=== PATIENT | female | born 1995 | race Caucasian/White ===

== ENCOUNTER 2021-03-30 12:33 | Emergency (ER) | payer OTHER, SELFPAY ==
--- NOTE | 2021-03-30 12:39 | ED.GENADULT ---
HPI - General Adult General Chief complaint: Unspecified Stated complaint: Rash,Kidney Pain Source: patient Mode of arrival: ambulatory Limitations: no limitations History of Present Illness HPI narrative: Patient presents for evaluation of right-sided flank pain with radiation to the abdomen. She indicates she initially experienced some suprapubic cramping that she thought was related to menstruation. Cramping started approximately 1 week ago, however she had no vaginal bleeding. Three days ago she developed right-sided flank pain and went to an urgent care associated with [facility]. From the history she provides, it sounds like there was no evidence of urinary tract infection on lab specimen collected there but she was diagnosed with pyelonephritis and was discharged with oral cipro. She denies any fever, vaginal discharge or vomiting. She has experienced chills and nausea. She has had kidney stones in the past and this feels similar. She has also had ovarian cysts. Surgical history positive for oophorectomy on the left, 2/2 ovarian torsion. She rates her pain 4-7/10 in severity and described as cramping and sharp. She has taken one dose of her cipro thus far. She states current pain is not as severe as pain experienced in past with ovarian torsion. She does also state that she has a hx of ovarian cysts. She states she has experienced some pruritis to her face since starting cipro. Denies rash and pruritis otherwise. Related Data Allergies Allergy/AdvReac Type Severity Reaction Status Date / Time No Known Allergies Allergy Unverified 09/05/17 16:33 Review of Systems Review of Systems: Narrative: CONSTITUTIONAL:Reports nausea. Denies fever. EYES: Denies visual changes, redness, or discharge. ENT: Denies rhinorrhea, congestion, sore throat, or otalgia. CARDIOVASCULAR: Denies chest pain, palpitations, or edema. RESPIRATORY: Denies cough or dyspnea. GASTROINTESTINAL: Reports nausea, right flank pain with radiation into right lower abdomen. GENITOURINARY: Reports dysuria SKIN: Reports pruritic rash to face MUSCULOSKELETAL: Denies back pain, joint pain, or myalgia. NEUROLOGIC: Denies headache, numbness, dizziness, or weakness. PSYCHIATRIC: Denies anxiety or depression. [facility] Past Medical History Medical History Endometriosis History of kidney stones Migraines Ovarian cyst, right Surgical History Surgical History History of left oophorectomy Family History Family History Mother No pertinent past medical history Social History Social History Substance use: never Gender identity (if verbalized by the patient): Female Sexual Orientation (if Verbalized by the Patient): Straight or Heterosexual Spiritual care concerns: No Exam Narrative: Exam Narrative: GENERAL: Well-appearing, well-nourished, and in no acute distress. HEAD: Normocephalic, atraumatic. EYES: PERRLA and EOMI. ENT: Nares clear, no rhinorrhea or epistaxis. Mucous membranes moist. Oropharynx without tonsillar hypertrophy exudate or other lesions. Bilateral TMs pearly hutchinson nonbulging NECK: Supple. No adenopathy or masses. No carotid bruits or JVD CHEST: Clear to auscultation. No respiratory distress. No wheezes rales or rhonchi HEART: Regular rate and rhythm. No murmur heard. Normal peripheral pulses. ABDOMEN: Soft, tender in the right upper and lower quadrants without rebound or guarding. Abdomen is nondistended, normal active bowel sounds. No CVA tenderness. EXTREMITIES: Normal range of motion. No edema. SKIN: Warm, dry, no rash. NEURO: No focal deficits. Alert and oriented x3. PSYCH: Normal mood and affect. Course Course Emergency Course: This is a 25-year-old female who presented with compla
[2021-03-30 12:44] VITALS: BP 114/67; PULSE 96; RESP 16; TEMP 36.8; O2SAT 100
== END 2021-03-30 13:36 | disposition home or self-care (01) ==
PROVIDERS: Emergency Provider Nurse Practitioner; PCP Family Medicine
DX: R10.31 Right lower quadrant pain (principal); R10.32 Left lower quadrant pain; L29.9 Pruritus, unspecified; Z87.42 Personal history of other diseases of the female genital tract; Z87.440 Personal history of urinary (tract) infections; N80.9 Endometriosis, unspecified
CPT/HCPCS: 81003; 99213; G0463

== ENCOUNTER 2025-03-09 10:51 | Emergency (ER) | payer OTHER, SELFPAY ==
--- NOTE | ~2025-03-09 | XR_ITS ---
EXAMINATION: XR chest 1V DATE: 03/09/2025 12:39 INDICATION: Seizure like activity TECHNIQUE: frontal view of the chest was obtained. COMPARISON: None FINDINGS: The lungs are clear with no focal airspace opacities, pulmonary edema, pleural effusion or pneumothor ax. The cardiomediastinal silhouette is normal. Visualized bones and soft tissues are unremarkable. IMPRESSION: 1. Normal chest radiograph. Reviewed, dictated and finalized at location B. IMPRESSION: 1. Normal chest radiograph.
--- NOTE | ~2025-03-09 | CT_ITS ---
EXAMINATION: CT brain wo con DATE: 03/09/2025 12:36 INDICATION: Seizure like activity. Head injury. TECHNIQUE: Computed tomography (CT) of the head was performed without intravenous contrast. Sagittal and coronal reconstructions were performed. The mA was adjusted according to patient size. Iterative reconstruction technique was employed. The dose-length product was 681.00 mGy-cm. COMPARISON: None FINDINGS: No fracture. No acute intracranial hemorrhage, acute infarction or abnormal extra axial fluid collect ion. Ventricles are normal and symmetric. No mass/mass effect. The orbits, paranasal sinuses and mast oid air cells are normal. IMPRESSION: 1. Normal head CT. No fracture acute intracranial process. Reviewed, dictated and finalized at location B.
[2025-03-09 10:53] VITALS: BP 124/85; PULSE 74; RESP 12; O2SAT 98
[2025-03-09 11:06] VITALS: BP 120/82; PULSE 83; RESP 12; TEMP 36.6; O2SAT 98
[2025-03-09 11:22] VITALS: PULSE 80
--- NOTE | 2025-03-09 12:11 | ED_ITS ---
HPI - Seizure General Chief Complaint: Seizure Stated Complaint: seizure Time Seen by Provider: 03/09/25 12:08 Source: patient Mode of arrival: ambulatory Limitations: no limitations History of Present Illness HPI Narrative: 29 years old white female came to the ED by ambulance with possible seizure-like activities. Patient had a court appointment today, was so stressful, after finishing, lost consciousness and fell down to the floor hitting her head, seizure-like activity lasted less than 30 seconds, patient report was slightly confused. Patient denies other injuries. Patient report having history of seizure for years and stop taking Keppra at age 17 and was told by her neurologist that her seizure is related to stress that is why she does not need to be on Keppra anymore. Patient denies any fever, chills, nausea, vomiting, biting her tongue or urine incontinence. Related Data Allergies Allergy/AdvReac Type Severity Reaction Status Date / Time codeine Allergy Rash Verified 03/09/25 11:07 metoclopramide (From Reglan) Allergy Anxiety Verified 03/09/25 11:07 NSAIDS (Non-Steroidal Allergy Gastrointestinal Verified 03/09/25 11:07 Anti-Inflamma Upset sumatriptan Allergy Swelling Verified 03/09/25 11:07 of Lip/Tongue/Throat Review of Systems 2 Review of Systems: All systems reviewed & are unremarkable except as noted in HPI and below PMFSH Past Medical History Medical History History of kidney stones Ovarian cyst, right Endometriosis Migraines Surgical History Surgical History History of left oophorectomy Family History Family History Mother No pertinent past medical history Social History Social History Substance use: never Gender identity (if verbalized by the patient): Female Sexual Orientation (if Verbalized by the Patient): Straight or Heterosexual Spiritual care concerns: No Exam 2 Narrative: General appearance: Well-developed, well-nourished Skin: Normal color Head: Normocephalic, nontraumatic Eyes: Clear conjunctiva ENT: Oropharynx normal, ears normal, nose normal Neck: Supple, nontender Chest and respiratory: Airway patent, no respiratory distress, no accessory muscle use Heart: Regular rate/rhythm Abdomen: Soft, nontender, no organomegaly, quiet bowel sounds Vascular: Normal peripheral pulses, normal capillary refill. Musculoskeletal: Normal range of motion, nontender back Neurologic: Alert and oriented ?3, [employer] is normal as tested, no gross motor deficit Course Vital Signs Vital signs: Vital Signs Pulse Rate 74 03/09/25 10:53 Respiratory Rate 12 03/09/25 10:53 Blood Pressure 124/85 03/09/25 10:53 Pulse Oximetry 98 03/09/25 10:53 Oxygen Delivery Room Air 03/09/25 10:53 Temperature 36.6 C 03/09/25 11:06 Pulse Rate 82 03/09/25 12:53 Respiratory Rate 18 03/09/25 12:53 Blood Pressure 125/84 03/09/25 12:53 Pulse Oximetry 98 03/09/25 12:53 Oxygen Delivery Room Air 03/09/25 11:30 MDM - Seizure MDM Narrative Medical decision making narrative: Patient came to the ED with seizure-like activities Vital signs are stable Physical examination is unremarkable Differential diagnosis include seizure-like activity secondary to stress. Blood workup today includes CBC, CMP, coags showed no acute abnormalities Urinalysis showed no evidence of infection Urine drug screen negative Chest x-ray showed no acute abnormalities CT head without contrast showed no acute abnormal PATIENT ELOPED BEFORE BLOOD WORKUP AND IMAGING BACK. DIAGNOSIS SEIZURE, STRESS, ELOPEMENT Differential Diagnosis Differential diagnosis: Likely other (Stress inducing seizure-like activities) Medical Records Attestation: I reviewed the patient's medical records. Lab Data Attestation: I reviewed the patient's lab results. 03/09/25 13:08 03/09/25 13:08 Labs: Lab Results 03/09/25 03/09/25 03/09/25 Range/Units 11:22 12:28 12:30 WBC (4.5-10.0) K/mm3 RBC (4.2-5.4) M/mm3 Hgb (12.0-15.0) g/dL Hct (37.0-47.0) % MCV (80-100) fl MCH (26-34) pg MCHC (32-36) g/dl RDW (11.5-14.5) % Plt Count (150-375) k/mm3 MPV (7.4-10.4) fl Immature Gran % (Auto) (0-0.5) % Neut % (Auto) (45.5-73.1) % Lymph % (Auto) (18.3-44.2) % [place] % (Auto) (2.6-8.5) % Eos % (Auto) (0-4.4) % Baso % (Auto) (0.2-1.2) % Lymph # (Auto) (0.9-3.2) K/mm3 [place] # (Auto) (0.1-0.6) K/mm3 Eos # (Auto) (0-0.3) K/mm3 Baso # (Auto) (0.0-0.1) K/mm3 Abs Immat Gran (auto) (0.00-0.031) K/mm3 Absolute Neuts (auto) (1.3-6.7) K/mm3 Absolute Nucleated RBC (0.0-0.012) K/mm3 Nucleated RBC % (0.0-0.2) % PT (11.1-14.7) Seconds INR APTT (22.3-36.8) Seconds Sodium (137-145) mmol/L Potassium (3.4-5.0) mmol/L Chloride (98-107) mmol/L Carbon Dioxide (22-30) mmol/L Anion Gap (4-12) mmol/L BUN (7-17) mg/dL Creatinine (0.7-1.0) mg/dL Estim Creat Clear Calc ml/min Estimated GFR (59 - ) Glucose (65-110) mg/dL Calcium (8.4-10.2) mg/dL Total Bilirubin (0.2-1.3) mg/dL AST (14-36) U/L ALT (6-35) U/L Alkaline Phosphatase (38-126) U/L Total Creatine Kinase (30-135) U/L Total Protein (6.3-8.2) g/dL Albumin (3.5-5.1) g/dL Urine Color Yellow (Yellow) Urine Appearance Cloudy H (Clear) Urine pH 7.5 (5.0-9.0) Ur Specific [place] 1.006 (1.001-1.035) Urine Protein Trace (Negative) mg/dL Urine Glucose (UA) Negative (Negative) mg/dL Urine Ketones Negative (Negative) mg/dL Ur Blood (Man) 3+ H (Negative) Urine Nitrate Negative (Negative) Urine Bilirubin Negative (Negative) Urine Urobilinogen 0.2 (<2.0) mg/dL Leukocyte Esterase Rfl Trace H (Negative) MELISSA/UL Urine RBC 3-5 H (0-2) /hpf Urine WBC 6-10 H (0-3) /hpf Ur Squamous Epith Cells Few (Few) /hpf Urine Bacteria 1+ H /hpf Urine Casts 0-2 POC Urine HCG, Qual Negative Negative (Negative) Urine Opiates Screen Negative (Negative) Urine Methadone Screen Negative (Negative) Ur Barbiturates Screen Negative (Negative) Ur Phencyclidine Scrn Negative (Negative) Ur Amphetamine Screen Negative (Negative) U Benzodiazepines Scrn Negative (Negative) Urine Cocaine Screen Negative (Negative) U Cannabinoids Screen Negative (Negative) Ethyl Alcohol (<10) mg/dL 03/09/25 Range/Units 13:08 WBC 7.4 (4.5-10.0) K/mm3 RBC 4.41 (4.2-5.4) M/mm3 Hgb 12.3 (12.0-15.0) g/dL Hct 38.4 (37.0-47.0) % MCV 87.1 (80-100) fl MCH 27.9 (26-34) pg MCHC 32.0 (32-36) g/dl RDW 14.1 (11.5-14.5) % Plt Count 307 (150-375) k/mm3 MPV 10.0 (7.4-10.4) fl Immature Gran % (Auto) 0.3 (0-0.5) % Neut % (Auto) 64.2 (45.5-73.1) % Lymph % (Auto) 26.8 (18.3-44.2) % [place] % (Auto) 7.9 (2.6-8.5) % Eos % (Auto) 0.3 (0-4.4) % Baso % (Auto) 0.5 (0.2-1.2) % Lymph # (Auto) 1.99 (0.9-3.2) K/mm3 [place] # (Auto) 0.6 (0.1-0.6) K/mm3 Eos # (Auto) 0.0 (0-0.3) K/mm3 Baso # (Auto) 0.0 (0.0-0.1) K/mm3 Abs Immat Gran (auto) 0.02 (0.00-0.031) K/mm3 Absolute Neuts (auto) 4.8 (1.3-6.7) K/mm3 Absolute Nucleated RBC 0.000 (0.0-0.012) K/mm3 Nucleated RBC % 0.0 (0.0-0.2) % PT 14.3 (11.1-14.7) Seconds INR 1.1 APTT 28.8 (22.3-36.8) Seconds Sodium 141 (137-145) mmol/L Potassium 3.6 (3.4-5.0) mmol/L Chloride 107 (98-107) mmol/L Carbon Dioxide 25 (22-30) mmol/L Anion Gap 9 (4-12) mmol/L BUN 7 (7-17) mg/dL Creatinine 0.68 L (0.7-1.0) mg/dL Estim Creat Clear Calc 116 ml/min Estimated GFR > 60 (59 - ) Glucose 94 (65-110) mg/dL Calcium 9.4 (8.4-10.2) mg/dL Total Bilirubin 0.9 (0.2-1.3) mg/dL AST 19 (14-36) U/L ALT 10 (6-35) U/L Alkaline Phosphatase 54 (38-126) U/L Total Creatine Kinase 51 (30-135) U/L Total Protein 7.3 (6.3-8.2) g/dL Albumin 4.2 (3.5-5.1) g/dL Urine Color (Yellow) Urine Appearance (Clear) Urine pH (5.0-9.0) Ur Specific [place] (1.001-1.035) Urine Protein (Negative) mg/dL Urine Glucose (UA) (Negative) mg/dL Urine Ketones (Negative) mg/dL Ur Blood (Man) (Negative) Urine Nitrate (Negative) Urine Bilirubin (Negative) Urine Urobilinogen (<2.0) mg/dL Leukocyte Esterase Rfl (Negative) MELISSA/UL Urine RBC (0-2) /hpf Urine WBC (0-3) /hpf Ur Squamous Epith Cells (Few) /hpf Urine Bacteria /hpf Urine Casts POC Urine HCG, Qual (Negative) Urine Opiates Screen (Negative) Urine Methadone Screen (Negative) Ur Barbiturates Screen (Negative) Ur Phencyclidine Scrn (Negative) Ur Amphetamine Screen (Negative) U Benzodiazepines Scrn (Negative) Urine Cocaine Screen (Negative) U Cannabinoids Screen (Negative) Ethyl Alcohol < 10 (<10) mg/dL Imaging Data Radiologist's impression: Impressions Head CT 03/09/25 13:20 IMPRESSION: 1. Normal head CT. No fracture acute intracranial process. Chest X-Ray 03/09/25 13:38 IMPRESSION: 1. Normal chest radiograph. ECG Data EKG #1: Attestation: I personally reviewed and interpreted this ECG as follows: ECG completion date: 03/09/25 Interpretation: NORMAL SINUS RHYTHM AT 65 BEATS PER MINUTE, NORMAL EKG Critical Care Time Critical Care Time Critical Care Time: No Discharge Plan Discharge Clinical Impression: Observed seizure-like activity, Stress Patient Disposition: Elopement After Seen by Prov Patient Language: Filipino Prescriptions: No Action hydroxyzine pamoate [Vistaril] 25 mg capsule 25 mg PO TID PRN (Reason: itching) Qty: 20 0RF Follow-up/Referrals: Juliane,Felipe Zhang MD [Primary Care Provider] - Danita Hernandez MD [Physician] - 03/13/25
--- NOTE | 2025-03-09 12:12 | ECG_ITS ---
Test Date: 2025-03-09 13:13:12 Measurements Intervals Bailey Rate: 65 P: 50 CT: 154 QRS: 57 QRSD: 85 T: 52 QT: 385 QTc: 403 Interpretive Statements SINUS RHYTHM No previous ECG available for comparison Electronically Signed On 03-09-2025 16:52:16 CDT by Guillermo Park
[2025-03-09 12:17] LABS: BEDSIDEPREGUCG Negative (Negative)
[2025-03-09 12:31] LABS: BEDSIDEPREGUCG Negative (Negative)
--- OUTSIDE RECORDS SUMMARY | 2025-03-09 12:42 | XMS_ITS | Continuity of Care Document ---
Author Organization [facility] Address [address] [place] [address] Phone Care Team Providers Care Snowboarder Name Role Phone Leo Rayo DO Unavailable Unavailable Allergies, Adverse Reactions, Alerts Substance Reaction Status Criticality Bleach (Sodium Hypochlorite) Active No Information barley Active No Information codeine Active No Information Medications Medication Instructions Dosage Effective Dates (start - stop) Status Comments oxycodone-acetamino phen 5 mg-325 mg tablet take 1 tablet by oral route every 8 hours as needed 1 tablet - Active Must last 10 days Cipro 500 mg tablet take 1 tablet by oral route every 12 hours 500 MG - Active prednisone 10 mg tablet take 1 tablet by oral route every day as needed 10 MG - Active TAMSULOSIN HCL 0.4 MG CAPSULE TAKE 1 CAPSULE BY MOUTH EVERY DAY 1/2 HOUR FOLLOWING THE SAME MEAL EACH DAY - Active omeprazole 20 mg tablet,delayed release take 20 milligram by oral route every day 20 milligram - Active Lupron Depot 3.75 mg intramuscular syringe kit inject (3.75MG) by intramuscular route every month 3.75 MG - Active Procedures Procedure Date Ketorolac tromethamine inj OFFICE/OUTPATIENT VISIT, EST OFFICE/OUTPATIENT VISIT, EST URINALYSIS NONAUTO W/O SCOPE OFFICE/OUTPATIENT VISIT, EST OFFICE/OUTPATIENT VISIT, NEW Advance Directives Directive Yes / No Effective Date File Name No Information Encounters Encounter Description Practice Location Reason(s) For Visit Diagnoses Date Provider Providers Copied on Encounter [facility], [address] [place], [address], [place] tel:[phone] *Count Includes [facility] No Information 4 Perri Bailey. [address] [place], [address], [place]. tel:[phone] [facility], [address] [place], [address], [place] tel:[phone] *Count Includes [facility] No Information 3 Perri Bailey. [address] [place], [address], [place]. tel:[phone] OFFICE/OUTPA TIENT VISIT, EST [facility], [address] [place], [address], [place] tel:[phone] *Count Includes [facility] PT HAS A CYST ON ARM (chief complaint)P T HAS A CYST IN EAR CANAL (chief complaint)F OLLOW UP (chief complaint) Sebaceous cyst of left axillaCalculus of kidneyAcute swimmer's ear of left side 3 Perri Bailey. [address] [place], [address], [place]. tel: [phone] [facility], [address] [place], [address], [place] tel:[phone] *Count Includes [facility] Follicular cyst of the skin and subcutaneous tissue, unspecified 3 Perri Bailey. [address] [place], [address], [place]. tel:[phone] [facility], [address] [place], [address], [place] tel:[phone] *Count Includes [facility] No Information 3 Perri Bailey. [address] [place], [address], [place]. tel:[phone] OFFICE/OUTPA TIENT VISIT, EST [facility], [address] [place], [address], [place] tel:[phone] *Count Includes [facility] PT HERE FOR MED REFILLS (chief complaint) Body mass index [BMI] 26.0-26.9, adultRight ovarian cystKidney stonesHistory of endometriosis 3 Perri Bailey. [address] [place], [address], [place]. tel:[phone] [facility], [address] [place], [address], tel:[phone] [facility] No Information 3 Perri Bailey. [address] [place], [address], [place]. tel:[phone] [facility], [address] [place], [address], [place] tel:[phone] *Count Includes [facility] History of endometriosisLowe r abdominal pain 3 Perri Bailey. [address] [place], [address], [place]. tel:[phone] OFFICE/OUTPA TIENT VISIT, [facility], [address] [place], [address], [place] tel:[phone] *Count Includes [facility] Medication refills (chief complaint)k idney stone (chief complaint)G ERD (chief complaint) DysuriaLeft nephrolithiasisNa usea and vomiting, unspecified vomiting typeChronic GERD 3 Perri Bailey. [address] [place], [address], [place]. tel:[phone] OFFICE/OUTPA TIENT VISIT, [facility], [address] [place], [address], [place] tel:[phone] *Count Includes [facility] Establish care (chief complaint)k idney stones both side (chief complaint)B irth control (chief complaint) Left renal stoneHistory of endometriosis 3 Perri Bailey. [address] [place], [address], [place]. tel:[phone] Family History Family Member Type Diagnosis Age At Onset No Information Payers Payer name Insurance type Covered republican ID Authoriza tion(s) No Information Social History Type Description Quantity Date Captured Comments Sex Female Smoking Status No Information Chief Complaint And Reason For Visit No Information Reason For Referral Reason For Referral No Information Plan Of Treatment Date Type Action Status Goal Dietary manageme nt education, guidance, and counseling completed Referral Referred To: [facility] [address] [place], [address] [phone] Ordered: Referrals: Gynecology. [facility]. Location: [place]. Evaluate and treat ordered Future Order: Radiology Order CT RENAL STONE PROTOCOL (ABD-PELV W/O) ([id number]), Sent on: Sent History Of Present Illness Encounter Date Complaint History Of Prese nt Illness PT HAS A CYST IN EAR CANAL PT ST ATES SHE BELIEVES SHE HAS A CYST IN HER EAR CANAL. FOLLOW UP PT STATES THAT S HE HAS A OBGYN APPT ON April, AND A UROLOGIST APPT ON March PT HAS A CYST ON ARM The symptom s began 1 week ago. The symptoms are reported as being moderate. The location is ARMPIT. Aggravating factors include PRESSURE. Relieving factors include NOTHING. PT STATES THAT CYST WAS FILLED WITH PUSS AND WAS GOING FROM HER ARMPIT TO BICEP AN TRICEP AREA. PT STATES THAT IT WAS SWOLLEN AND RED AND PAINFUL, STATES THAT THE PAIN MEDICATION SHE WAS PRESCRIBED IS DOING NOTHING FOR IT AND THE ANTIBIOTIC IS NOT WORKING. PT HERE FOR MED REFILLS patient had gone to ER for kidney stone pain and CT showed some small, non-obstructing stones. Also showed ovarian cysts. patient has history of endometriosis. She has appointment to see Investigations Manager later this month. The pain has gotten better and seems to come and go at times. She has appointment with Urology next month for f/u of kidney stone pains. Discussed situation with patient's interactions/rudeness with motel front desk clerk. Patient states that it's not just her and that the office person she talks with is also rude with her. Stated that I will check into it but that we don't tolerate rudeness to the office staff kidney stone The client state s the symptoms are acute. still having pain and hasn't passed stone yet. having nausea/vomiting. Pain medication helps but makes her very nauseated/vomiting most times. Perocet makes her sleepy. Sees Urologist end of next month GERD The severity of the problem is moderate. The problem has worsened. The symptoms are intermittent. The location is epigastric. The quality of the pain is burning. Associated symptoms include nausea and vomiting. Pertinent negatives include constipation and diarrhea. Medication refills kidney stones both side obstruct ing stone left side 5mm, radiology report reviewed. Patient states had them when she was and Urology was thinking that she may need a stent Establish care control history of endom etriosis and left Oophorectomy. has had Lupron/depo injections in past and then was supposed to start BCP. last Pap over 1 year ago. Now feeling more pain from endometriosis again Functional Status Date Functional Assessmen t No Information Instructions Date Instruction Additional Infor shannan patient to f/u with Urology. Can rx a 1 time rx for Percocet 10/325 mg Q8 hrs #21 due to increased pain of other conditions besides Kidney stones, but unable to call it in until Thursday/Thursday. Still haven't gotten CT scans and records from [facility] and will keep trying to get them. Discussed with patient about Narcotic use and will need to drug screen her and will most likely wean off medication after sees the Urologist Related to Calculus of kidney discussed about able to use Cipro eye drops for the ear. don't get water in ear until healed Related to Acute swimmer's ear of left side patient unable to ta ke NSAIDs by mouth due to history of gastritis and nausea/vomiting. since Augmentin not shrinking cyst, will try Cipro and left it continue to drain Related to Sebaceous cyst of left axilla F/u with Investigations Manager Related to Histo ry of endometriosis gave her an order to get another CT done about 1 week before seeing the Urologist. sent pain medication to [facility] [place] but they didn't have it in stock. I called and cancelled that rx and sent it to the one in [place], [place]. Had to cancel that one since that one didn't have it in stock which I called and cancelled too. Finally found [facility] in [place] which had it and I sent it there Related to Kidney stones f/u with Investigations Manager. Since we are having trouble findings places that have Percocet 7.5/325, I discussed with patient that we will reduce it to 5/325 mg Q8 hrs prn and also add some prednisone. Related to Right ovarian cyst Dietary management e ducation, guidance, and counseling Related to Body mass index [BMI] 26.0-26.9, adult Encouraged patient t o avoid foods and activities that irritate symptoms of GERD. Take medications as prescribed for symptoms and to avoid skipping doses. Related to Chronic GERD changed to Zofran disintegrating tab Related to Nausea and vomiting, unspecified vomiting type UA looks OK, will send out Relat ed to Dysuria discussed with annia hwang about pain medication. [place] still causing worse nausea/vomiting. Percocet causes sleepiness. Finally decided that will do Percocet at night for pain and f/u with Urology for kidney stone. Patient is supposed to get another CT to f/u kidney stone prior to seeing Urology next month Related to Left nephrolithiasis can start Lupron/Dep o injections monthly for 6 months. Will start next month when comes in for Pap/Well Woman exam. Related to History of endometriosis 5 mm obstructing lef t kidney stone per radiology report. feels like it's moved down but still causing pain. on Flomax.Given strainer to strain urine Related to Left renal stone Assessments Type Assessment Date No Information Patient Care Teams Name Effective Dates (start - stop) Status Members No Information
--- OUTSIDE RECORDS SUMMARY | 2025-03-09 12:42 | XMS_ITS | Encounter Summary ---
Author Organization [facility] Address [address] [facility] [place] [address] Care Team Providers Care Chick Room Supervisor Name Role Phone Reuben Saez MD Primary Care Provider [phone] Encounter Details Date Type Department Care Team (Late st Contact Info) Description 01/22/[address] [address] Minnie Siddiqui Social History Tobacco Use Types Packs/Day Years Used Date Smoking Tobacco: Passive Smo ke Exposure - Never Smoker Comments No Sex and Gender Information Value Date Recorded Sex Assigned at Not on file Legal Sex Female 6:48 AM WORKFORCE ADVISOR Gender Identity Not on file Sexual Orientation Not on file documented as of this encounter Plan of Treatment Not on file documented as of this encounter Visit Diagnoses Not on filedocumented in this encounter Care Teams Chick Room Supervisor Relationship Specialty Start Date End Date Reuben Saez MD [address] [place] [address] PCP - General Family Medicine 01/18/15 documented as of this encounter
--- OUTSIDE RECORDS SUMMARY | 2025-03-09 12:42 | XMS_ITS | Patient Health Record ---
Author Organization [facility] Address [address] [address] Care Team Providers Care Rotary Shear Worker Helper Name Role Phone ToussaintMorenoir Primary Care Provider Allergies Allergen (clinical drug ingredient) Drug/Non Drug Allergy documented on EMR Reaction Allergy Type Onset Date Status metoclopramide Reglan Unknown Drug Allergy Ac tive sumatriptan SUMAtriptan Unknown Drug Allergy Act essence codeine Codeine rash Drug Allergy Active Reason For Referral No Information Medications Medication SIG (Take, Route, Frequency, Duration) Notes Start Date End Date Status Zofran 4 MG 1 tablet Orally Ever y 8 Hours for 3 days 09/16/2021 Not-Taking Amoxicillin 500 MG 1 capsule Orally endy ry 8 hrs for 7 days 09/17/2021 Not-Taking Doxycycline Hyclate 100 MG as directed Orally Twice a day for 7 days 09/26/2021 Not-Takin g Social History Tobacco Use: Social History Observation Description Date Details (start date - stop date) Never Smoker NA - NA Tobacco Use/Smoking Question Answer Notes Are you a nonsmoker Alcohol Screen (Audit-C) Question Answer Notes Did you have a drink containing alcohol in the p ast year? No Points 0 Interpretation Negative Problems Problem Type SNOMED Code ICD Code Onset Dates Problem Status W/U Status Risk Notes Problem 74093843 Urinary tract infection, site not specified (N39.0) Active confirmed Problem 69214836 Hematuria, unspecified (R31.9) Active confirmed Problem 657221592 History of kidne y stones (Z87.442) Active confirmed Problem 543200807 Gastroesophageal reflux disease without esophagitis (K21.9) Active confirmed Problem Fatigue (23829937) Tiredness (R53.83) Active co nfirmed Problem 86245460 Lymphadenitis (I88.9) Active confirmed Problem Hoarseness (53967975) Hoarseness (R49.0) Active confirmed Problem 77158716 Seizures (R56.9) Active confirmed Problem 51939366732418369 History of endometriosis (Z87.42) Active confirmed Problem 11945865 Arthralgia, unspecified joint (M25.50) Active confirmed Problem Cough (80750436) Cough (R05.9) Active confirmed Problem 417759438 Acute midline lo w back pain without sciatica (M54.50) Active confirmed Plan Of Treatment No Information Insurance Providers Payer Name Payer Address Payer Phone Subscriber Number Group Number Insured Name Patient Relationship to Insured Coverage Start Date Coverage End Date [employer] [facility] [address] [address] [place] [address] [id number] JONAH JAIMES Self - patient is the insured 0 Medical (General) History Medical History History ICD Code Endometriosis Surgical History Surgery Date(Month/Year) Left oopherectomy 2016 Tosilectomy Neck Lymph node removal Hospitalization History Reason Date(Month/Year) Kidney infection 2016
--- OUTSIDE RECORDS SUMMARY | 2025-03-09 12:42 | XMS_ITS | Encounter Summary ---
Author Organization [facility] Address [address] [place] [address] Care Team Providers Care Advertising Account Representative Name Role Phone Reuben Ann MD Unavailable None, Provider Primary Care Provider Deon ble Encounter Details Date Type Department Care Team (Late st Contact Info) Description 01/05/2025 AppFirst Message Enc [facility] Medical Group Call Center [address] [place] [phone] Kassandra, [facility] Provider oxyCODONE-acetaminop hen (PERCOCET) 5-325 MG tablet Social History Tobacco Use Types Packs/Day Years Used Date Smoking Tobacco: Never Smokeless Tobacco: Never Alcohol Use Standard Drinks/Week Comments Not Currently 0 (1 standard drink = 0.6 oz pur e alcohol) AUDIT-C Answer Date Recorded Frequency of Alcohol Consumption Never 05/17/2019 Average Number of Drinks Not on file 019 Frequency of Binge Drinking Not on file 05/08 Comments No Sex and Gender Information Value Date Recorded Sex Assigned at Female 09/30/2024 3:48 PM BARREL CHARRER HELPER Legal Sex Female 11:03 PM CDT Gender Identity Not on file Sexual Orientation Not on file documented as of this encounter Functional Status * Are you deaf or do you have serious difficulty hearing Answer Date of Assessment Author Status No 09/04/2024 1:36 PM BARREL CHARRER HELPER Nubia Bowers RN Active * Are you blind or do you have serious difficulty seeing, even when wearing glasses? Answer Date of Assessment Author Status No 09/04/2024 1:36 PM Nubia Ortiz RN Active * Do you have serious difficulty walking or climbing stairs? Answer Date of Assessment Author Status No 09/04/2024 1:36 PM Nubia Ortiz RN Active * Do you have difficulty dressing or bathing? Answer Date of Assessment Author Status No 09/04/2024 1:36 PM Nubia Ortiz RN Active * Because of a physical, mental, or emotional condition, do you have difficulty doing errands alone such as visiting a doctor's office or shopping? Answer Date of Assessment Author Status No 09/04/2024 1:36 PM Nubia Ortiz RN Active documented as of this encounter Mental Status * Because of a physical, mental, or emotional condition, do you have serious difficulty concentrating, remembering, or making decisions? Answer Entry Date Author Status No 09/04/2024 1:36 PM Nubia Ortiz RN Active documented in this encounter Plan of Treatment Not on file documented as of this encounter Visit Diagnoses Not on filedocumented in this encounter Care Teams Advertising Account Representative Relationship Specialty Start Date End Date None, Provider, PCP - General UNKNOWN PHYSICIAN SPECIALTY 07/05/24 Reuben Ann MD [address] [phone] [facility] 10/06/18 documented as of this encounter
--- OUTSIDE RECORDS SUMMARY | 2025-03-09 12:42 | XMS_ITS | Encounter Summary ---
Author Organization [facility] Address [address] [place] [address] Care Team Providers Care German Tutor Name Role Phone Reuben Ann MD Unavailable None, Provider Primary Care Provider Deon ble Encounter Details Date Type Department Care Team (Late st Contact Info) Description 09/09/2024 [employer] Message Enc [facility] Medical Group Call Center [address] [place] [phone] Kassandra, [facility] Provider oxyCODONE-acetaminop hen (PERCOCET) 5-325 MG tablet [...] Sex Assigned at Female 09/30/2024 3:48 PM FINANCIAL CONSULTANT Legal Sex Female 11:03 PM CDT Gender Identity Not on file Sexual Orientation Not on file documented as of this encounter Functional Status * Are you deaf or do you have serious difficulty hearing Answer Date of Assessment Author Status No 09/04/2024 1:36 PM FINANCIAL CONSULTANT Nubia Bowers RN Active * Are you [...] 1:36 PM Nubia Ortiz RN Active * Calculated C-SSRS Risk Score (Lifetime/Recent) Answer Date of Assessment Author Status No Risk Indicated 09/11/2024 2:26 AM Violetta Laughlin RN Active * [place] Suicide Severity Rating Scale (Screener/Recent Self-Report) Question Answer Date of Assessment Author Status 1. Wish to be (Past 1 Month) No 09/11/2024 2:26 AM Moriah Laughlin RN Act essence 2. Non-Specific Active Suicidal Thoughts (Past 1 Month) No 09/11/2024 2:26 AM Moriah Laughlin RN Act essence 6. Suicidal Behavior (Lifetime) No 09/11/2024 2:26 AM Moriah Laughlin RN Act essence documented as of this encounter Mental Status [...] on filedocumented in this encounter Care Teams German Tutor Relationship Specialty Start Date End Date None, Provider, PCP - General UNKNOWN PHYSICIAN SPECIALTY 07/05/24 Reuben Ann MD [address] [phone] [facility] 10/06/18 documented as of this encounter
--- OUTSIDE RECORDS SUMMARY | 2025-03-09 12:42 | XMS_ITS | Clinical Summary ---
Author Organization [facility] Address [address] [place] [address] Phone Care Team Providers Care Strategic Account Manager Name Role Phone Felipe Cardozo MD Primary Care Provider [phone] Allergies Active Allergy Reactions Criticality Noted Date Comments Barley Grass Unknown 01/26/2010 Diphenhydramine Other (see Comments) 01/15/2020 States a burning feeling in the chest and generalized fuzzy feeling This RN gave medication (diluted) over a two minute period. Codeine Unknown High 08/27/2010 Metoclopramide Anxiety 01/30/2020 Sumatriptan Swelling 12/11/2019 Medications ALBUTEROL IN take by inhalation. Active Norethindrone Acetate 5 MG Tablet TK 1 T PO QD 11/06/19 2 0 Active Acetaminophen (TYLENOL PO) Take by mouth. Active traMADol (ULTRAM) 50 MG Tablet Take 1 Tab by mouth every 6 hours as needed for Severe pain. 12 Tab 0 Active ondansetron (Zofran ODT) 4 MG TABLET DISPERSIBLEIndicati ons:Nausea and vomiting, intractability of vomiting not specified, unspecified vomiting type Take 1 Tab by mouth every 8 hours as needed for Nausea - 1st line. 20 Tab 0 Active oxyCODONE (ROXICODONE) 5 MG Tablet Take 1 Tab by mouth every 6 hours as needed for Severe pain. 11 Tab 0 Active HYDROcodone-acetami nophen (NORCO) 5-325 MG Tablet Take 1-2 Tabs by mouth every 4 hours as needed for Moderate or more severe pain for up to 12 doses. 12 Tab 0 Active HYDROcodone-acetami nophen (NORCO) 5-325 MG Tablet Take 1 Tab by mouth every 6 hours as needed for Moderate or more severe pain or Severe pain. 8 Tab 0 Active Active Problems No known active problems Immunizations Immunization Administration Dates Next Due Hepatitis B Vaccine, Pediatric/adolescent 2012 Influenza Vaccine, Quadrivalent, PF 08/22/2013 Social History Tobacco Use Types Packs/Day Years Used Date Smoking Tobacco: Never Smokeless Tobacco: Never Alcohol Use Standard Drinks/Week Comments Never 0 (1 standard drink = 0.6 oz pur e alcohol) AUDIT-C Answer Date Recorded Q1: How often do you have a drink containing alc ohol? 2-4 times a month 12/11/2019 Q2: How many drinks containi ng alcohol do you have on a typical day when you are drinking? 1 or 2 12/11/2019 Q3: How often do you have si x or more drinks on one occasion? Never 12/11/2019 Sexually Active Control Partners Comments Yes Pill Comments Unknown Sex and Gender Information Value Date Recorded Sex Assigned at Not on file Legal Sex Female 8:53 PM CDT Gender Identity Not on file Sexual Orientation Not on file Last Filed Vital Signs Vital Sign Reading Time Taken Comments Blood Pressure 104/75 05/19/2020 6:30 PM CDT Pulse 89 05/19/2020 6:30 PM CDT Temperature 37.1 C (98.8 F) 05/19/2020 10:08 AM CDT Respiratory Rate 16 05/19/2020 6:30 PM CDT Oxygen Saturation 96% 05/19/2020 6:30 PM CDT Inhaled Oxygen Concentration - - Weight 77.1 kg (170 lb) 05/19/2020 10:08 AM CDT Height 180.3 cm (5' 11) 05/19/2020 10:08 AM CDT Body Mass Index 23.71 05/19/2020 10:08 AM CDT Plan of Treatment Health Maintenance Due Date Last Done Comments Hepatitis C Virus (HCV) Screening 1994 TdaP Immunization 1994 Hepatitis B Immunization (2 of 3 - 3-dose series) 09/19/2013 08/22/2013 SARS-COV-2 Immunization ( - 2023- season) 2024 Influenza Immunization (Seas on Ended) 2025 08/22/2013 Respiratory Syncytial Virus (RSV) Immunization (Adult) (1 - 1-dose 75+ series) 2069 Human Papillomavirus (HPV) Immunization Aged Out No longer eligible b ased on patient's age to complete this topic Meningococcal Immunization (ACWY) Aged Out No longer eligible based on patient's age to complete this topic Pneumococcal Immunization Combined Aged Out No longer eligible based on patient's age to complete this topic Rotavirus Immunization Aged Out No lo nger eligible based on patient's age to complete this topic Insurance Care Teams Strategic Account Manager Relationship Specialty Start Date End Date Felipe Cardozo MD [address] [place] [address] PCP - General Family Medicine 12/11/19
--- OUTSIDE RECORDS SUMMARY | 2025-03-09 12:42 | XMS_ITS | Clinical Summary ---
Author Organization [facility] Address [address] [place] [address] Care Team Providers Care Belt Cutter Name Role Phone Reuben Saez MD Primary Care Provider [phone] Source Comments [facility],non-owned Affiliates and Associated Physician Practices is amultiple site organization consisting of ambulatory clinics and hospital sitesin [place], [place], [place] and [place]. This disclosure is being madepursuant to the Care Everywhere program and may not contain all information available regarding this patient. Last updated 18.[facility] Allergies Active Allergy Reactions Criticality Noted Date Comments Barley Grass Unknown 01/26/2010 Codeine High 08/27/2010 Medications * Be aware that medications may not be up to date on this document. Alwaysverify current medications with the patient. ALBUTEROL IN Inhale by mouth. 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 Esophageal reflux 08/27/2010 Skull lesion 08/12/2010 Allodynia 06/05/2010 Head injury 01/29/2010 Abdominal pain, generalized 01/28/2010 Adopted 01/28/2010 Headache 01/26/2010 Overview (07/15/2015): Social History Tobacco Use Types Packs/Day Years Used Date Smoking Tobacco: Passive Smo ke Exposure - Never Smoker Smokeless Tobacco: Never Comments No Sex and Gender Information Value Date Recorded Sex Assigned at Not on file Legal Sex Female 6:48 AM DIRECTOR WORK Gender Identity Not on file Sexual Orientation Not on file Last Filed Vital Signs Vital Sign Reading Time Taken Comments Blood Pressure 137/90 10/08/2016 4:26 PM DIRECTOR WORK Pulse 89 10/08/2016 4:26 PM DIRECTOR WORK Temperature 37.2 C (99 F) 10/08/2016 3:36 PM DIRECTOR WORK Respiratory Rate 16 10/08/2016 3:36 PM DIRECTOR WORK Oxygen Saturation 100% 10/08/2016 3:36 PM DIRECTOR WORK Inhaled Oxygen Concentration - - Weight 68 kg (150 lb) 10/08/2016 3:36 PM DIRECTOR WORK Height 180.3 cm (5' 11) 10/08/2016 3:36 PM DIRECTOR WORK Body Mass Index 20.92 10/08/2016 3:36 PM DIRECTOR WORK Plan of Treatment Health Maintenance Due Date Last Done Comments HIV SCREENING 2009 HEPATITIS C SCREENING 10/19/2012 DTAP/TDAP/TD VACCINES (1 - Tdap) 2013 HEPATITIS B VACCINE (1 of 3 - 19+ 3-dose series) 2013 COVID-19 VACCINE (1 - 2023-2 5 season) 2024 DEPRESSION SCREENING 09/07/2024 INFLUENZA VACCINE (Season Ended) 2025 ZOSTER VACCINE (1 of 2) 2044 HIB VACCINE Aged Out No longer eligi ble based on patient's age to complete this topic HPV VACCINE Aged Out No longer eligi ble based on patient's age to complete this topic MENINGOCOCCAL (Group B) VACC INE SHARED DECISION-MAKING Aged Out No longer eligibl e based on patient's age to complete this topic MENINGOCOCCAL GROUPS A/C/Y/W VACCINE Aged Out No longer eligible b ased on patient's age to complete this topic PNEUMOCOCCAL VACCINE Aged Out No long er eligible based on patient's age to complete this topic Care Teams Belt Cutter Relationship Specialty Start Date End Date Reuben Saez MD [address] [facility] [address] [phone] PCP - General Family Medicine 01/18/15
--- OUTSIDE RECORDS SUMMARY | 2025-03-09 12:42 | XMS_ITS | Clinical Summary ---
Author Organization [facility] Address [address] [place] [address] Care Team Providers Care Rn Or Lpn Name Role Phone Reuben Ann MD Unavailable None, Provider Primary Care Provider Unavaila ble Allergies Active Allergy Reactions Criticality Noted Date Comments Barley Grass Unknown 08/11/2017 Codeine Hives 05/17/2019 Iodine Swelling 11/20/2023 Haloperidol Unknown 08/13/2024 Iodinated Contrast Media Redness,Swellin g,Ra sh Medium 08/11/2017 Shared rash all over and on arm with IV worse Meperidine Other (see comment) Low 07/27/2020 Nsaids Myalgias,Other (see comment) Medium 03/31/2021 Gastroparesis Metoclopramide Unknown 02/17/2022 Sumatriptan Throat swelling 02/17/2022 Medications tamsulosin (FLOMAX) 0.4 MG Cap Take 1 capsule (0.4 mg total) by mouth daily. 15 capsule 4 Active pantoprazole EC (PROTONIX) 40 MG tablet Take 1 tablet (40 mg total) by mouth daily. 30 tablet 1 4 Active naloxone (NARCAN) 4 MG/0.1ML nasal spray 1 spray by Nasal route as needed for Opioid reversal. may repeat every 2 to 3 minutes in alternating nostrils until medical assistance becomes available 1 each 5 09/11/19 26 Active methocarbamol (ROBAXIN) 750 MG Tab Take 1 tablet (750 mg total) by mouth every 4 (four) hours. 30 tablet 5 Active diclofenac EC (VOLTAREN) 50 MG tablet Take 1 tablet (50 mg total) by mouth 2 (two) times daily. 30 tablet 5 Active oxyCODONE-aceta minophen (PERCOCET) 5-325 MG tabletIndicatio ns:Acute Pain < 7 Day Supply Take 1 tablet by mouth every 4 (four) hours as needed for Pain. Indications: Acute Pain < 7 Day Supply 5 tablet 5 Active Active Problems Problem Noted Date Diagnosed Date Kidney stone 09/04/2024 Encounters Date Type Department Care Team Description 01/05/2025 Relay Network Message Enc [facility] Call Center [address] [place] [phone] First Opinion, [facility] Provider oxyCODONE-acetamino phen (PERCOCET) 5-325 MG tablet 12/19/2024 11:46 AM CDT - 12/19/2024 1:24 PM CDT Emergency [facility] [place] [address] Bianka Interiano PA Urinary Frequency; Back Pain Discharge Disposition: Left Against Medical Advice 12/19/2024 Travel from Last 3 Months Family History * Patient is adopted Medical History Relation Comments No Known Problems Father No Known Problems Mother Relation Status Comments Father Alive Mother Alive Social History Tobacco Use Types Packs/Day Years [...] 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 Sex Female 11:03 PM CDT Gender Identity Not on file Sexual Orientation Not on file Last Filed Vital Signs Vital Sign Reading Time Taken Comments Blood Pressure 134/72 12/19/2024 11:34 AM CDT Pulse 97 12/19/2024 11:34 AM CDT Temperature 36.7 C (98 F) 12/19/2024 11:34 AM CDT Respiratory Rate 16 12/19/2024 11:34 AM CDT Oxygen Saturation 99% 12/19/2024 11:34 AM CDT Inhaled Oxygen Concentration - - Weight 90.3 kg (199 lb 1.2 oz) 12/19/2024 11:36 AM CDT Height 180.3 cm (5' 11) 12/19/2024 11:34 AM CDT Body Mass Index 27.77 12/19/2024 11:34 AM CDT Plan of Treatment Health Maintenance Due Date Last Done Comments Cervical Cancer Screening Pa p Smear (Age 30 to 64) Every 3 Years 1994 Annual Physical 1997 Hepatitis B Vaccines (2 of 3 - 3-dose series) 09/19/2013 08/22/2013 COVID-19 Vaccine (2023-2 5 season) 2024 PHQ-2 (Physician [place]) 09/07/2024 Cervical Cancer Screening Pa p with HPV Testing (Age 30 to 64) Every 5 Years 2024 Cervical Cancer Screening with HPV 2024 DTaP, Tdap and Td Vaccines ( 2 - Td or Tdap) 07/23/2030 07/23/2020 Hepatitis C Completed 05/27/2024 HPV Vaccines Aged Out No longer eligi ble based on patient's age to complete this topic Meningococcal B Vaccine Aged Out No l onger eligible based on patient's age to complete this topic Meningococcal Vaccine Aged Out No richie elliot eligible based on patient's age to complete this topic Pneumococcal Vaccine: Pediat rics (0 to 5 Years) and At-Risk Patients (6 to 49 Years) Aged Out No longer eligi ble based on patient's age to complete this topic RSV Immunizations Under 20 Months Aged Out No longer eligible based on patient's age to complete this topic Procedures Procedure Name Priority Date/Time Associated Diagnosis Comments POCT URINE (BACK OFFICE) STAT 12/19/2024 12:00 PM CDT HC URINALYSIS AUTO W/O MICRO STAT 12/19/2024 11:58 AM CDT LIPASE STAT 12/19/2024 11:58 AM CDT COMPREHENSIVE METABOLIC PANEL STAT 12/19/2024 11:58 AM CDT CBC W/DIFF AUTOMATED STAT 12/19/2024 11:58 AM CDT HEPATITIS PANEL,ACUTE STAT 05/27/2024 2:53 PM CDT from Last 3 Months or Most Recently Relevant to Health Maintenance Results * POCT urine (12/19/2024 12:00 PM CDT) URINE HCG TEST NEGATIVE Internal Control: VALID 12/19/2024 12:0 0 PM CDT Bianka DIAL POINT OF CARE TEST ORDERABLES Final Result * (ABNORMAL) URINALYSIS (12/19/2024 11:58 AM CDT) SPECIMEN TYPE URINE CLEAN CATCH 12/19/2024 12:00 PM CDT [facility] COLOR (U) LIGHT YELLOW 12/19/2024 12:19 PM CDT [facility] TRANSPARENCY CLEAR 12/19/2024 12:19 PM CDT [facility] SPECIFIC GRAVITY (U) 1.015 1.001 - 1.030 12/19/2024 12:19 PM CDT [facility] U PH 6.0 5.0 - 9.0 12/19/2024 12:19 PM CDT [facility] LEUKOCYTES (U) NEGATIVE NEGATIVE 12/19/2024 12:19 PM CDT [facility] NITRITES NEGATIVE NEGATIVE 12/19/2024 12:19 PM CDT [facility] PROTEIN RANDOM (U) NEGATIVE <30 MG/DL 12/19/2024 12:19 PM CDT [facility] GLUCOSE (U) NORMAL NORMAL MG/DL 12/19/2024 12:19 PM CDT [facility] KETONES MG/DL (U) NEGATIVE NEGATIVE MG/DL 12/19/2024 12:19 PM CDT [facility] UROBILINOGEN NORMAL NORMAL MG/DL 12/19/2024 12:19 PM CDT [facility] BILIRUBIN (U) NEGATIVE NEGATIVE MG/DL 12/19/2024 12:19 PM CDT [facility] BLOOD (U) 1+(A) NEGATIVE 12/19/2024 12:19 PM CDT [facility] MUCUS RARE /LPF 12/19/2024 12:19 PM CDT [facility] WBC/HPF 1 <6 /HPF 12/19/2024 12:19 PM CDT [facility] RBC/HPF 1 <6 /HPF 12/19/2024 12:19 PM CDT [facility] SQUAMOUS EPITHELIALS FEW /HPF 12/19/2024 12:19 PM CDT [facility] URINE SPECIMEN OBTAINED BY CLEAN CATCH PROCEDURE / Unknown 12/19/2024 11:58 AM CDT us Bianka DIAL URINE ORDERABLES Final Result [facility] [address] [place] [address], [place] [phone] * (ABNORMAL) COMPREHENSIVE METABOLIC PANEL (12/19/2024 11:58 AM CDT) GLUCOSE 95 70 - 99 MG/DL 12/19/2024 12:43 PM CDT [facility] BUN 15 7 - 18 MG/DL 12/19/2024 12:43 PM CDT [facility] CREATININE S/P/B 0.88 0.55 - 1.02 MG/DL 12/19/2024 12:43 PM CDT [facility] SODIUM S/P/B 139 136 - 145 MMOL/L 12/19/2024 12:43 PM CDT [facility] POTASSIUM S/P/B 4.0 3.5 - 5.1 MMOL/L 12/19/2024 12:43 PM CDT [facility] CHLORIDE S/P/B 109 97 - 115 MMOL/L 12/19/2024 12:43 PM CDT [facility] CO2 22.0 21 - 32 MMOL/L 12/19/2024 12:43 PM CDT [facility] CALCIUM S/P/B 8.3(L) 8.5 - 10.1 MG/DL 12/19/2024 12:43 PM CDT [facility] BILIRUBIN TOTAL S/P/B 0.4 0.2 - 1.2 MG/DL 12/19/2024 12:43 PM CDT [facility] Comment: THIS ASSAY IS NOT RECOMMENDED FOR PATIENTS UNDERGOING TREATMENT WITH ELTROMBOPAG DUE TO THE POTENTIAL FOR FALSELY ELEVATED RESULTS. TOTAL PROTEIN S/P/B 7.0 6.4 - 8.2 G/DL 12/19/2024 12:43 PM CDT [facility] ALBUMIN S/P/B 3.5 3.4 - 5.0 G/DL 12/19/2024 12:43 PM CDT [facility] AST 19 15 - 37 U/L 12/19/2024 12:43 PM CDT [facility] ALT 16 14 - 55 U/L 12/19/2024 12:43 PM CDT [facility] ALKALINE PHOSPHATASE S/P/B 80 50 - 136 U/L 12/19/2024 12:43 PM CDT [facility] ANION GAP 8.0 2 - 10 MMOL/L 12/19/2024 12:43 PM CDT [facility] BUN CREATININE RATIO 17.0 6 - 26 12/19/2024 12:43 PM CDT [facility] A/G RATIO 1.0 1.0 - 2.0 RATIO 12/19/2024 12:43 PM CDT [facility] GFR ESTIMATE >90 >90 ML/MIN/1.7 3 M2 12/19/2024 12:43 PM CDT [facility] Comment: NOTE: eGFR is not calculated for patients <18 years of age or gender unknown. This is an estimated GFR calculation using the new CKD EPI creatinine equation without race and so does not require a correction factor for race. This estimated GFR should not be used for calculating drug doses. 12/19/2024 11:5 8 AM CDT Bianka DIAL LABORATORY Final Result [facility] [address] [place] [id number], * CBC W/DIFF AUTOMATED (12/19/2024 11:58 AM CDT) WBC 8.78 4.5 - 11.0 x10'3/uL 12/19/2024 12:19 PM CDT [facility] RBC 4.76 4.20 - 5.40 x10'6/uL 12/19/2024 12:19 PM CDT [facility] HGB 13.3 12.0 - 16.0 G/DL 12/19/2024 12:19 PM CDT [facility] HCT 41.1 38.0 - 48.0 % 12/19/2024 12:19 PM CDT [facility] MCV 86.3 81.0 - 99.0 FL 12/19/2024 12:19 PM CDT [facility] MCH 27.9 27.0 - 31.0 PG 12/19/2024 12:19 PM CDT [facility] MCHC 32.4 32.0 - 36.0 G/DL 12/19/2024 12:19 PM CDT [facility] RDW 13.6 11.5 - 14.5 % 12/19/2024 12:19 PM CDT [facility] PLT 384 130 - 400 x10'3/uL 12/19/2024 12:19 PM CDT [facility] MPV 9.6 9.3 - 12.2 FL 12/19/2024 12:19 PM CDT [facility] DIFFERENTIAL TYPE AUTOMATED DIFFERENTIAL 12/19/2024 12:19 PM CDT [facility] NEUTROPHILS % 68.3 % 12/19/2024 12:19 PM CDT [facility] LYMPHOCYTES % 22.3 % 12/19/2024 12:19 PM CDT [facility] MONOCYTES % 7.2 % 12/19/2024 12:19 PM CDT [facility] EOSINOPHILS 1.4 % 12/19/2024 12:19 PM CDT [facility] BASOPHILS 0.5 % 12/19/2024 12:19 PM CDT [facility] IMMATURE GRANS % 0.3 % 12/20/19 12:19 PM CDT [facility] ABS. NEUTROPHILS 6.00 1.80 - 7.70 x10'3/uL 12/19/2024 12:19 PM CDT [facility] ABS. LYMPHOCYTES 1.96 1.00 - 4.80 x10'3/uL 12/19/2024 12:19 PM CDT [facility] ABS. MONOCYTES 0.63 0.24 - 0.86 x10'3/uL 12/19/2024 12:19 PM CDT [facility] ABS. EOSINOPHILS 0.12 0.04 - 0.36 x10'3/uL 12/19/2024 12:19 PM CDT [facility] ABS. BASOPHILS 0.04 0.01 - 0.08 x10'3/uL 12/19/2024 12:19 PM CDT [facility] ABS. IMMATURE GRANULOCYTES 0.03 0.00 - 0.49 x10'3/uL 12/19/2024 12:19 PM CDT [facility] 12/19/2024 11:5 8 AM CDT Bianka DIAL LABORATORY Final Result [facility] [address] [place] [address], [place] [phone] * LIPASE (12/19/2024 11:58 AM CDT) [facility] LIPASE 32 13 - 75 UNITS/L 12/19/2024 12:43 PM CDT [facility] 12/19/2024 11:5 8 AM CDT Bianka DIAL LABORATORY Final Result [facility] [address] [place] [address], [place] [phone] * HEPATITIS PANEL,ACUTE (05/27/2024 2:53 PM CDT) Pathologist [facility] HEPATITIS B SURFACE AG NON-REACTI VE NON-REACTI VE 05/27/2024 4:42 PM CDT [facility] HEP B CORE IGM NON-REACTI VE NON-REACTI VE 05/27/2024 4:42 PM CDT [facility] HAV IGM NON-REACTI VE NON-REACTI VE 05/27/2024 4:42 PM CDT [facility] HEPATITIS C AB NON-REACTI VE NON-REACTI VE 05/27/2024 4:42 PM CDT [facility] 05/27/2024 2:53 PM CDT us Bianka DIAL LABORATORY Final Result [facility] [address] [place] [address], from Last 3 Months or Most Recently Relevant to Health Maintenance Insurance [employer] Advance Directives * Full Code (Latest Code Status on File) Date Activated Date Inactivated Comments 09/04/2024 12:11 PM 09/06/2024 5:10 PM Care Teams Rn Or Lpn Relationship Specialty Start Date End Date None, Provider, PCP - General UNKNOWN PHYSICIAN SPECIALTY 07/05/24 Reuben Ann MD [address] [phone] SLIP SEAT COVERER ONCOLOGY 10/06/18
[2025-03-09 12:46] LABS: Add Urine Microscopic? YES; Appearance Urine Cloudy (Clear); Glucose Urine UA Negative (Negative); Leukocyte Esterase Ur Trace LEU/UL (Negative); Nitrate Urine Negative (Negative); Non Pathogenic Casts 0-2; Specific Grav Ur 1.006 (1.001-1.035)
[2025-03-09 12:53] VITALS: BP 125/84; PULSE 82; RESP 18; O2SAT 98
[2025-03-09] MEDS: levETIRAcetam 1000MG/NACL100ML 1,000 MG/100 ML BAG 400 MG IVPB (12:54)
[2025-03-09 12:58] LABS: Cannabinoid Screen Urine Negative (Negative)
[2025-03-09] MEDS: ACETAMINOPHEN 500 MG TABLET 1000 MG PO (13:00)
[2025-03-09 13:18] LABS: Hematocrit 38.4 % (37.0-47.0); Hemoglobin 12.3 g/dL (12.0-15.0); Immature Granulocyte Percent A 0.3 % (0-0.5); Lymphocytes Absolute Auto 1.99 K/mm3 (0.9-3.2); Mean Corpuscular HGB Conc 32.0 g/dl (32-36); Mean Corpuscular Hemoglobin 27.9 pg (26-34); Mean Corpuscular Volume 87.1 fl (80-100); Nucleated Red Blood Cells Absolute Auto 0.000 K/mm3 (0.0-0.012); Nucleated Red Blood Cells Perc 0.0 % (0.0-0.2); Platelet Count Result 307 k/mm3 (150-375); Red Blood Count 4.41 M/mm3 (4.2-5.4); White Blood Count 7.4 K/mm3 (4.5-10.0)
[2025-03-09 13:25] LABS: Alanine Aminotransferase 10 U/L (6-35); Albumin Level 4.2 g/dL (3.5-5.1); Alkaline Phosphatase 54 U/L (38-126); Anion Gap 9 mmol/L (4-12); Aspartate Amino Transferase 19 U/L (14-36); Bilirubin,Total 0.9 mg/dL (0.2-1.3); Blood Urea Nitrogen 7 mg/dL (7-17); Calcium 9.4 mg/dL (8.4-10.2); Carbon Dioxide 25 mmol/L (22-30); Chloride 107 mmol/L (98-107); Creatine Kinase 51 U/L (30-135); Estimated CRCL calculation 116 ml/min; Estimated Glomerular Filt Rate > 60; Glucose 94 mg/dL (65-110); Potassium 3.6 mmol/L (3.4-5.0); Sodium 141 mmol/L (137-145); Total Protein 7.3 g/dL (6.3-8.2)
[2025-03-09 13:34] LABS: INR 1.1; Partial Thromboplastin Time 28.8 Seconds (22.3-36.8); Prothrombin Time 14.3 Seconds (11.1-14.7)
--- NOTE | 2025-03-09 14:14 | PC.NURSE ---
pt asked for IV to be removed pt seen leaving the dept shortly after with mother
== END 2025-03-09 14:13 | disposition left against medical advice (07) ==
PROVIDERS: Emergency Provider Emergency Medicine; PCP Family Medicine
DX: R56.9 Unspecified convulsions (principal); F43.9 Reaction to severe stress, unspecified; W19.XXXA Unspecified fall, initial encounter
CPT/HCPCS: 36415; 70450; 71045; 80053; 80307; 81001; 81025; 82077; 82550; 85025; 85610; 85730; 87086; 93005; 96365; 99284; A9270; J1953